=== PATIENT | female | born 1955 | race Caucasian/White ===

== ENCOUNTER 2023-05-01 14:07 | Outpatient (CLI) | payer MEDICARE, MEDICAID | END 2023-05-01 14:08 | disposition home or self-care (01) | LOC: MADRAD 14:07 | PROVIDERS: ATTEND Physician Assistant | DX: M54.50 Low back pain, unspecified (principal); M47.816 Spondylosis without myelopathy or radiculopathy, lumbar region | CPT/HCPCS: 72100 ==